=== PATIENT | male | born 1950 | race Caucasian/White ===

== ENCOUNTER 2017-06-25 16:04 | Observation (INO) ==
[2017-06-25] MEDS ORDERED: Levofloxacin 750 MG/150 ML 750 MG/150 ML BAG IVPB ONE (16:13)
[2017-06-25] MEDS ORDERED: methylPREDNISolone 125 MG/2 ML VIAL IVP ONE (16:13)
[2017-06-25] MEDS ORDERED: Ipratropium/Albuterol Neb 3 ML ONE (16:14)
--- NOTE | 2017-06-25 16:15 | Emergency Department Note ---
Disposition Clinical Impression: Acute exacerbation of chronic obstructive airways disease Disposition: Admitted As Inpatient Condition: Good Referrals: NONE,PCP [Primary Care Provider] - Time of Disposition: 17:10 SOB HPI - General Chief Complaint: ED Shortness of Breath/Dyspnea Stated Complaint: BRODY Source: patient Limitations: no limitations - History of Present Illness Patient presents to the emergency department secondary to cough congestion and shortness of breath. He has had nasal congestion for several days, increasing shortness of breath cough and wheezing throughout the day today. Cough productive reveals sputum. Denies hemoptysis. Denies chest pain. Denies lower extremity edema or calf discomfort. Denies recent prolonged immobilization. Denies history of DVT or PE. - Related Data Home Medications Medication Instructions Recorded Confirmed Albuterol Sulfate [Proair Hfa] 1 puff IH PRN PRN 01/27/16 06/25/17 Fluticasone/Salmeterol [Advair 1 puff IH BID 01/27/16 06/25/17 250-50 Diskus] Tiotropium [Spiriva] 18 mcg IH HS 01/27/16 06/25/17 rOPINIRole [Requip] 2 mg PO HS 01/27/16 06/25/17 Gabapentin [Neurontin] 1 tab PO HS 06/25/17 06/25/17 Glimepiride [Amaryl] 4 mg PO DAILY 06/25/17 06/25/17 Linagliptin [Tradjenta] 5 mg PO DAILY 06/25/17 06/25/17 Allergies Allergy/AdvReac Type Severity Reaction Status Date / Time morphine AdvReac Nausea Verified 01/27/16 19:23 Constitutional: Denies: fever, chills Eyes: Denies: vision change ENT ED: Reports: congestion. Denies: ear pain, dysphagia Cardiovascular: Denies: chest pain, palpitations Respiratory: Reports: cough, dyspnea, wheezes, sputum production. Denies: hemoptysis Gastrointestinal: Denies: abdominal pain, nausea, vomiting, diarrhea Musculoskeletal: Denies: back pain Integumentary: Denies: rash Neurological: Denies: headache Hematological/Lymphatic: Denies: lymphadenopathy Allergic/Immunologic: Denies: urticaria, itchy eyes Past Medical History - Past Medical History Source: patient Medical history: Reports: asthma, COPD, other Surgical history: Reports: non-contributory Psychiatric history: Reports: no psych history - Social History Smoking Status: Current every day smoker Smokeless Tobacco Status: No Alcohol use: Reports: rarely Drug use: Reports: none Physical Exam - General Limitations: no limitations General appearance: alert, in no apparent distress, other - Eye Eye exam: Present: normal appearance, PERRL, EOMI - ENT ENT exam: normal exam, normal oropharynx, mucous membranes moist - Neck Neck exam: Present: normal inspection, full ROM. Absent: meningismus - Respiratory Respiratory exam: Present: wheezes, prolonged expiratory phase. Absent: respiratory distress, accessory muscle use - Cardiovascular Cardiovascular exam: Present: regular rate, normal rhythm, normal heart sounds - Extremities Exam Extremities exam: Present: normal inspection, full ROM. Absent: tenderness, pedal edema, calf tenderness - Neurological Exam Neurological exam: Present: alert, oriented X3 - Psychiatric Psychiatric exam: Present: normal affect, normal mood - Skin Skin exam: Present: warm, dry, intact, normal color Course Course Narrative: Time 1700: Patient subjectively feels improved, his PO2 is 94% on 2 L. Still has wheezing on exam though is respiring much more easily. Patient will be admitted to the hospitalist service for ongoing evaluation and treatment of his COPD exacerbation. Vital Signs Temperature 97.0 F L 06/25/17 16:06 Pulse Rate 102 06/25/17 16:06 Respiratory Rate 24 06/25/17 16:06 Blood Pressure 136/86 06/25/17 16:06 O2 Sat by Pulse Oximetry 94 06/25/17 16:06 Temperature 97.0 F L 06/25/17 16:06 Pulse Rate 88 06/25/17 16:47 Respiratory Rate 17 06/25/17 16:47 Blood Pressure 120/61 06/25/17 16:47 O2 Sat by Pulse Oximetry 94 06/25/17 16:47 Oxygen Delivery Oxygen Delivery Nasal Cannula Shortness of Breath/Dyspnea - Lab Data Lab results reviewed: Yes I reviewed the patient's lab results. Result diagrams: 06/25/17 16:25 06/25/17 16:25 Lab Results 06/25/17 06/25/17 06/25/17 Range/Units 16:25 16:25 16:25 WBC 11.0 (4.3-11.1) K/mcL RBC 5.01 (4.19-5.50) M/mcL Hgb 16.2 (12.9-16.9) g/dL Hct 47.7 (37.5-50.1) % MCV 95.2 (83.0-100.0) fL MCH 32.3 (28.0-33.3) pg MCHC 34.0 (31.6-35.5) g/dL RDW 13.3 (11.5-14.5) % Plt Count 263 (140-400) K/mcL MPV 10.2 (9.4-12.4) fL Immature Gran % 0.3 (0-4) % Seg Neutrophils % 64.5 % Lymphocytes % 26.1 % Monocytes % 5.3 % Eosinophils % 3.3 % Basophils % 0.5 % Neutrophils # 7.1 (1.6-8.9) K/mcL Lymphocytes # 2.9 (0.6-4.6) K/mcL Monocytes # 0.6 (0.0-1.3) K/mcL Eosinophils # 0.4 (0.0-0.6) K/mcL Basophils # 0.1 (0.0-0.2) K/mcL PT 10.1 (9.4-12.1) Seconds INR 0.9 APTT 30.8 (26.0-36.0) Seconds VBG Lactic Acid (0.5-2.2) mmol/L Sodium 140 (136-145) mEq/L Potassium 4.1 (3.5-4.5) mEq/L Chloride 102 (98-109) mEq/L Carbon Dioxide 25 (19-29) mEq/L BUN 20 (8-26) mg/dL Creatinine 1.05 (0.72-1.25) mg/dL Est GFR ( Amer) > 60 (> 60) Est GFR (Non-Af Amer) > 60 (> 60) BUN/Creatinine Ratio 19 (6-26) Glucose 262 H (70-99) mg/dL Calculated Osmolality 302 H (280-300) Calcium 9.5 (8.6-10.8) mg/dL Total Bilirubin 0.3 (0.2-1.2) mg/dL Direct Bilirubin 0.1 (0.0-0.5) mg/dL Indirect Bilirubin 0.2 (0.0-1.2) mg/dL AST 10 (5-34) Units/L ALT 15 (0-55) Units/L Alkaline Phosphatase 86 (38-126) Units/L Troponin I (0-0.03) ng/mL B-Natriuretic Peptide (0-100) pg/mL Serum Total Protein 6.9 (6.0-8.3) g/dL Albumin 3.5 (3.5-5.0) g/dL Globulin 3.4 (2.4-3.5) g/dL Albumin/Globulin Ratio 1.0 L (1.1-2.2) 06/25/17 06/25/17 06/25/17 Range/Units 16:25 16:25 16:28 WBC (4.3-11.1) K/mcL RBC (4.19-5.50) M/mcL Hgb (12.9-16.9) g/dL Hct (37.5-50.1) % MCV (83.0-100.0) fL MCH (28.0-33.3) pg MCHC (31.6-35.5) g/dL RDW (11.5-14.5) % Plt Count (140-400) K/mcL MPV (9.4-12.4) fL Immature Gran % (0-4) % Seg Neutrophils % % Lymphocytes % % Monocytes % % Eosinophils % % Basophils % % Neutrophils # (1.6-8.9) K/mcL Lymphocytes # (0.6-4.6) K/mcL Monocytes # (0.0-1.3) K/mcL Eosinophils # (0.0-0.6) K/mcL Basophils # (0.0-0.2) K/mcL PT (9.4-12.1) Seconds INR APTT (26.0-36.0) Seconds VBG Lactic Acid 1.4 (0.5-2.2) mmol/L Sodium (136-145) mEq/L Potassium (3.5-4.5) mEq/L Chloride (98-109) mEq/L Carbon Dioxide (19-29) mEq/L BUN (8-26) mg/dL Creatinine (0.72-1.25) mg/dL Est GFR ( Amer) (> 60) Est GFR (Non-Af Amer) (> 60) BUN/Creatinine Ratio (6-26) Glucose (70-99) mg/dL Calculated Osmolality (280-300) Calcium (8.6-10.8) mg/dL Total Bilirubin (0.2-1.2) mg/dL Direct Bilirubin (0.0-0.5) mg/dL Indirect Bilirubin (0.0-1.2) mg/dL AST (5-34) Units/L ALT (0-55) Units/L Alkaline Phosphatase (38-126) Units/L Troponin I 0.00 (0-0.03) ng/mL B-Natriuretic Peptide 33 (0-100) pg/mL Serum Total Protein (6.0-8.3) g/dL Albumin (3.5-5.0) g/dL Globulin (2.4-3.5) g/dL Albumin/Globulin Ratio (1.1-2.2) ITS Impressions Chest X-Ray 06/25/17 16:13 IMPRESSION: No acute cardiopulmonary process D/ / Wyatt Nicole MD / Wyatt Nicole MD Interpreting Provider: Wyatt Nicole MD - Radiology Data Radiology results reviewed: Yes I reviewed the patient's radiology results. - EKG Data EKG attestation: Yes I reviewed and interpreted this EKG. EKG shows normal: Reports: sinus rhythm (Sinus tachycardia rate 104. Right bundle branch block. Nonspecific changes noted.)
[2017-06-25] MEDS: Ipratropium/Albuterol Neb 3 ML IH ONE ×2 (16:24→16:25)
[2017-06-25 16:33] LABS: Basophils # 0.1 K/mcL (0.0-0.2); Basophils % 0.5 %; Eosinophils # 0.4 K/mcL (0.0-0.6); Eosinophils % 3.3 %; Hematocrit 47.7 % (37.5-50.1); Hemoglobin 16.2 g/dL (12.9-16.9); Immature Granulocytes % 0.3 % (0-4); Lymphocytes # 2.9 K/mcL (0.6-4.6); Lymphocytes % 26.1 %; Mean Corpuscular Hemoglobin 32.3 pg (28.0-33.3); Mean Corpuscular Volume 95.2 fL (83.0-100.0); Mean Platelet Volume 10.2 fL (9.4-12.4); Monocytes # 0.6 K/mcL (0.0-1.3); Monocytes % 5.3 %; Neutrophils # 7.1 K/mcL (1.6-8.9); Platelet Count 263 K/mcL (140-400); Red Blood Count 5.01 M/mcL (4.19-5.50); Red Cell Distribution Width 13.3 % (11.5-14.5); Segmented Neutrophils % 64.5 %
[2017-06-25 16:42] LABS: INR 0.9; Prothrombin Time 10.1 Seconds (9.4-12.1)
[2017-06-25 16:45] LABS: Activated Partial Thrombo Time 30.8 Seconds (26.0-36.0)
[2017-06-25 16:52] LABS: Alanine Aminotransferase 15 Units/L (0-55); Albumin 3.5 g/dL (3.5-5.0); Alkaline Phosphatase 86 Units/L (38-126); Aspartate Amino Transferase 10 Units/L (5-34); BUN/Creatinine Ratio 19 (6-26); Bilirubin,Direct 0.1 mg/dL (0.0-0.5); Bilirubin,Indirect 0.2 mg/dL (0.0-1.2); Bilirubin,Total 0.3 mg/dL (0.2-1.2); Blood Urea Nitrogen 20 mg/dL (8-26); Calcium 9.5 mg/dL (8.6-10.8); Carbon Dioxide 25 mEq/L (19-29); Chloride 102 mEq/L (98-109); Globulin 3.4 g/dL (2.4-3.5); Glucose 262 mg/dL (70-99); Osmolality,Calculated 302 (280-300); Potassium 4.1 mEq/L (3.5-4.5); Sodium 140 mEq/L (136-145); Total Protein 6.9 g/dL (6.0-8.3); eGFR For African Americans > 60 (> 60); eGFR For Non-African Americans > 60 (> 60)
[2017-06-25] MEDS ORDERED: Naloxone 0.4 MG/ML INJ IVP PRN (17:11)
[2017-06-25] MEDS ORDERED: rOPINIRole 1 MG TABLET PO SCH (21:00)
[2017-06-25] MEDS ORDERED: Gabapentin 300 MG CAPSULE PO SCH (21:00)
[2017-06-25] MEDS ORDERED: Albuterol 2.5 MG/3 ML NEBULIZER IH PRN (21:02)
[2017-06-25] MEDS: Budesonide/Formoterol 80/4.5 MDI IH SCH (22:27)
[2017-06-25] MEDS: Tiotropium 18 MCG inhalation IH SCH (22:28)
[2017-06-26] MEDS: methylPREDNISolone 125 MG/2 ML VIAL IVP SCH ×2 (02:49→09:51)
[2017-06-26 06:17] LABS: Basophils % 0.2 %; Hematocrit 46.2 % (37.5-50.1); Hemoglobin 15.9 g/dL (12.9-16.9); Immature Granulocytes % 0.4 % (0-4); Lymphocytes # 0.8 K/mcL (0.6-4.6); Lymphocytes % 6.6 %; Mean Corpuscular HGB Conc 34.4 g/dL (31.6-35.5); Mean Corpuscular Hemoglobin 32.3 pg (28.0-33.3); Mean Corpuscular Volume 93.7 fL (83.0-100.0); Mean Platelet Volume 9.9 fL (9.4-12.4); Monocytes # 0.1 K/mcL (0.0-1.3); Monocytes % 0.9 %; Neutrophils # 10.5 K/mcL (1.6-8.9); Platelet Count 248 K/mcL (140-400); Red Blood Count 4.93 M/mcL (4.19-5.50); Red Cell Distribution Width 12.8 % (11.5-14.5); Segmented Neutrophils % 91.9 %
[2017-06-26 06:42] LABS: BUN/Creatinine Ratio 20 (6-26); Blood Urea Nitrogen 20 mg/dL (8-26); Calcium 9.6 mg/dL (8.6-10.8); Carbon Dioxide 23 mEq/L (19-29); Chloride 103 mEq/L (98-109); Glucose 344 mg/dL (70-99); Osmolality,Calculated 298 (280-300); Phosphorous 3.3 mg/dL (2.3-4.7); Potassium 5.1 mEq/L (3.5-4.5); Sodium 136 mEq/L (136-145); eGFR For African Americans > 60 (> 60); eGFR For Non-African Americans > 60 (> 60)
[2017-06-26 07:32] VITALS: BP 130/82
[2017-06-26] MEDS ORDERED: *HR* Glimepiride 2 MG TABLET PO SCH (08:00)
[2017-06-26] MEDS ORDERED: *HR* Glimepiride 4 MG TABLET PO SCH (08:00)
[2017-06-26] MEDS ORDERED: (Linagliptin [Tradjenta] 5 MG) PO SCH (09:00)
[2017-06-26] MEDS: Budesonide/Formoterol 80/4.5 MDI IH SCH (10:00)
[2017-06-26] MEDS: Tiotropium 18 MCG inhalation IH SCH (10:12)
--- NOTE | 2017-06-26 10:17 | Internal Med History&Physical ---
Date of Encounter: 06/26/17 Time of Encounter: 09:50 Assessment and Plan (1) Acute exacerbation of chronic obstructive airways disease Current visit: Yes Status: Acute He was given Levaquin and Solu-Medrol in emergency room. Continue with antibiotics and oral prednisone at discharge. Internal Medicine - H&P: HPI Chief complaint: Dyspnea Admitted From: Home Plans for Post Hospital Care: Home History of present illness: Mr. Lopez is a 67 year old male came to the emergency room stating he had onset of dyspnea the evening of June 23. It worsened despite use of his regular pulmonary medication regimen. He came to emergency room and was evaluated and felt to have exacerbation of COPD. He was admitted to [facility] for ongoing care needs. His respiratory history is significant for having smoked since age 17 up to 2 packs per day. He states he presently smokes approximately one pack per day. He does not wear home oxygen. He does not recall having pulmonary function testing done. He does claim a diagnosis of COPD. He feels significantly improved now and wishes to be discharged home. Past Med Surg Social Fam HX - Past Medical History Medical history: asthma, COPD, diabetes Psychiatric history: no psych history - Past Surgical History Surgical History: non-contributory - Social History Smoking Status: Current every day smoker Packs per day: 2 Smokeless Tobacco Status: No Alcohol use: rarely Drug use: none - Family History Mother Living Status: Hx Family Respiratory Disorders: Yes (COPD) Father Adopted: No Living Status: Hx Family Cardiac Disorders: Yes Hx Family Cancer: Yes (colon CA+, mets to lungs) Internal Medicine - H&P: Meds Albuterol Sulfate [Proair Hfa] 1 puff IH PRN PRN 01/27/16 [History] Fluticasone/Salmeterol [Advair 250-50 Diskus] 1 puff IH BID 01/27/16 [History] Tiotropium [Spiriva] 18 mcg IH HS 01/27/16 [History] rOPINIRole [Requip] 2 mg PO HS 01/27/16 [History] Gabapentin [Neurontin] 1 tab PO HS 06/25/17 [History] Glimepiride [Amaryl] 4 mg PO DAILY 06/25/17 [History] Linagliptin [Tradjenta] 5 mg PO DAILY 06/25/17 [History] 3 Allergy/AdvReac Type Severity Reaction Status Date / Time morphine AdvReac Nausea Verified 01/27/16 19:23 All Systems PM: A 10-system review of systems was performed and is negative for pertinent findings except as documented above in the HPI. Review of systems: Review of systems from his January 2016 [facility] hospitalization were reviewed and revised as below. Gen.: His weight has been stable at approximately 92 kg since January 2016 hospitalization. Cardiovascular: Denies [place] hypertension heart failure angina DVT or pulmonary embolus. He states he had an exercise stress test approximately 2011 which was negative. Respiratory: As per history of present illness GI: He denies disorders of his liver gallbladder or exocrine pancreas. : Denies hematuria dysuria or kidney stones. Neurologic: He denies large distribution strokes or seizures. Endocrine: He was diagnosed with DM 2 approximately 2005. He has hyperlipidemia. He denies known thyroid disease. Hematology/oncology: Denies blood disorders cancers or anemia. Psychiatric: He denies anxiety depression or other mental health issues. Musk skeletal: He has DJD but no known gout or osteoporosis. - Constitutional Vitals: Temp Pulse Resp BP Pulse Ox 98.7 F 100 18 130/82 91 06/26/17 07:32 06/26/17 07:32 06/26/17 07:32 06/26/17 07:32 06/26/17 07:32 Exam: Gen.: He is a well-developed well-nourished male sitting on the side of the bed who appears in no acute distress HEENT: Head is atraumatic and normocephalic. Eyes: EOMI. There is no scleral icterus. Mouth: Mucosa is moist. Neck: Supple and nontender. There is no thyromegaly or adenopathy noted. Heart: Regular without murmurs gallops or ectopics Lungs: No wheezes or crackles or egophony are heard. Abdomen: Soft and nontender. No masses or guarding are noted. Extremities: There is no cyanosis edema or clubbing noted. Dorsalis present posttibial pulses are 1-2 over 2 bilaterally. Neurologic: Mental status: He is talkative and a good historian. Cranial nerves : Smile is symmetric. Forehead wrinkles bilaterally. Tongue protrudes midline. EOMI. Motor: There is no pronator drift. Cerebellar: Finger to nose is intact bilaterally. Skin: Warm and dry Internal Med - H&P Results - Labs CBC & Chem 7: 06/26/17 06:08 06/26/17 06:08 Labs: Short CBC 06/26/17 Range/Units 06:08 WBC 11.4 H (4.3-11.1) K/mcL Hgb 15.9 (12.9-16.9) g/dL Hct 46.2 (37.5-50.1) % Plt Count 248 (140-400) K/mcL Neutrophils # 10.5 H (1.6-8.9) K/mcL BMP 06/26/17 06:08 Sodium 136 Potassium 5.1 H D Chloride 103 Carbon Dioxide 23 BUN 20 Creatinine 1.01 Glucose 344 H Calcium 9.6
--- NOTE | 2017-06-26 10:24 | Discharge Summary ---
Date of Encounter: 06/26/17 Time of Encounter: 09:50 - Discharge Diagnosis (1) Acute exacerbation of chronic obstructive airways disease Priority: Primary Status: Acute - Discharge Medications Prescriptions: Lactobacillus [Culturelle] 1 each PO BID #6 cap.sprink Levofloxacin [Levaquin] 750 mg PO DAILY #3 tablet PredniSONE [Deltasone] 20 mg PO DAILY #3 tablet Home Medications: Albuterol Sulfate [Proair Hfa] 1 puff IH PRN PRN 01/27/16 [History] Fluticasone/Salmeterol [Advair 250-50 Diskus] 1 puff IH BID 01/27/16 [History] Tiotropium [Spiriva] 18 mcg IH HS 01/27/16 [History] rOPINIRole [Requip] 2 mg PO HS 01/27/16 [History] Gabapentin [Neurontin] 1 tab PO HS 06/25/17 [History] Glimepiride [Amaryl] 4 mg PO DAILY 06/25/17 [History] Linagliptin [Tradjenta] 5 mg PO DAILY 06/25/17 [History] Lactobacillus [Culturelle] 1 each PO BID #6 cap.sprink 06/26/17 [Rx] Levofloxacin [Levaquin] 750 mg PO DAILY #3 tablet 06/26/17 [Rx] PredniSONE [Deltasone] 20 mg PO DAILY #3 tablet 06/26/17 [Rx] Allergies/Adverse Reactions: 3 Allergy/AdvReac Type Severity Reaction Status Date / Time morphine AdvReac Nausea Verified 01/27/16 19:23 Date of admission: 06/25/17 17:47 Primary care physician: Murray Butler M.D. - Patient Status Disposition: Home, Self-Care Condition: Good Functional capacity at discharge: independent ambulation Overall status at discharge: patient is progressing back to baseline - Discharge Instructions Follow Up With: Murray Butler MD [Partnered Physician] - 1 week Forms: ED Satisfaction Letter - Diet and Activity Activity: resume usual activities as tolerated, wear oxygen at all times Diet: diabetic diet Hospital course: Mr. Lopez is a 67 year old male who came to the emergency room stating he had onset of dyspnea the evening of June 23. It worsened despite use of his regular pulmonary medication regimen. He came to emergency room and was evaluated and felt to have exacerbation of COPD. He was admitted to [facility] for ongoing care needs. Initial orders written by the emergency room physician. I saw him the morning of June 26 and performed a history physical and discharge. [facility]. When I saw him he stated he felt much improved and wished to be discharged home. Room air oximetry showed saturation decreasing to 86% on a 6 minute walk. He became dyspneic and required immediate institution of oxygen to return to safe blood oxygen level. He will be discharged home with oxygen at 2 L/m by nasal cannula 11/05 with portable gas and concentrator with a diagnosis of COPD with hypoxemia. I encouraged him strongly to discontinue smoking. He will continue with antibiotic, steroids and probiotic for 3 additional days at discharge. He will follow with his PCP Dr. Butler within 1 week. - Time Spent with Patient Total time spent providing and/or coordinating discharge services: - Constitutional Vitals: Temp Pulse Resp BP Pulse Ox 98.7 F 100 16 130/82 91 06/26/17 07:32 06/26/17 07:32 06/26/17 10:13 06/26/17 07:32 06/26/17 10:13
--- NOTE | 2017-06-26 15:46 | Electrocardiograph Report ---
[address] [place], [place] [address] Test Date: 2017-06-25 Pat Name: Duong Lopez Department: [id number] Room: [facility] Gender: M [employer] Internship: Sergio : 1950 Requested By: Bj Barnes Order Number: [id number] Reading MD: Miryam Kearney Measurements Intervals Spray Rate: 104 P: 50 SD: 151 QRS: 71 QRSD: 134 T: 42 QT: 365 QTc: 425 Interpretive Statements SINUS TACHYCARDIA WITH OCCASIONAL SUPRAVENTRICULAR PREMATURE COMPLEXES RIGHT BUNDLE BRANCH BLOCK Electronically Signed On 06-26-2017 15:45:00 EDT by Miryam Kearney
== END 2017-06-26 10:42 | disposition home or self-care (01) ==
LOC: INPPIK 16:04 → EMEROOPIK 16:04 → INPPIK 18:11
PROVIDERS: ADMIT Internal Medicine; ATTEND Internal Medicine